=== PATIENT | male | born 1995 | race Caucasian/White ===

== ENCOUNTER 2018-12-08 09:30 | Emergency (ER) | payer MEDICAID, OTHER ==
[~2018-12-08] VITALS: Ht 170.2 cm; Wt 78.0 kg
[~2018-12-08 09:30] MED LIST: [UNRECOGNIZED DRUG - REMARK]
[2018-12-08 09:33] VITALS: BP 128/65; PULSE 92; RESP 16; Ht 170.2 cm; Wt 78.0 kg
--- NOTE | 2018-12-08 09:46 | ERD ---
ER Documentation Chief Complaint Chief Complaint pt is bib self with c/o right ear pain x 2 wks getting worse HPI This is a 23-year-old male who presents with pain in his right ear for the past 2 weeks. He was also experiencing decreased hearing in the right ear. No bleeding or drainage from the ear. No fever. Tried [id number] wax removal kits without any relief. ROS All systems reviewed and are negative except as per history of present illness. Medications Home Meds Reported Medications [Unkn Antibiotics] No Conflict Check 10/30/09 [None] No Conflict Check 10/23/09 Allergies Allergies: Coded Allergies: No Known Allergies (Verified Allergy, Mild, 10/30/09) PMhx/Soc History of Surgery: No Anesthesia Reaction: No Hx Neurological Disorder: No Hx Respiratory Disorders: No Hx Cardiac Disorders: No Hx Psychiatric Problems: No Hx Miscellaneous Medical Probl: No Hx Alcohol Use: No Hx Substance Use: No Hx Tobacco Use: No FmHx Family History: No diabetes Physical Exam Vitals Vital Signs Date Temp Pulse Resp B/P (MAP) Pulse Ox O2 O2 Flow FiO2 Time Delivery Rate 12/08/18 98.0 92 16 128/65 98 09:33 (86) Physical Exam Const: No acute distress Head: Atraumatic Eyes: Normal Conjunctiva ENT: Cerumen impaction bilaterally worse on the right side Neck: Full range of motion. No meningismus. Resp: Clear to auscultation bilaterally Cardio: Regular rate and rhythm, no murmurs Results 24 hrs Current Medications Medications Dose Sig/Luigi Start Time Status Last (Trade) Ordered Route PRN Stop Time Admin Dose Reason Admin Docusate 10 mg BID PO 12/08/18 Sodium 11:00 (Colace Liquid (Ped)) Procedures/MDM Patient has cerumen impaction. Ear lavage of the right ear performed. Patient discharged with Cortisporin eardrops. Patient counseled regarding my diagnostic impression and care plan. Prior to discharge all questions answered. Pt agrees with treatment plan and understands strict return precautions. Pt is instructed to follow up with primary care provider within 24-48 hours. Precautionary instructions provided including instructions to return to the ER if not improving or for any worsening or changing symptoms or concerns. Departure Diagnosis: Primary Impression: Otalgia Additional Impression: Cerumen impaction Condition: Stable MATT VANCE PA-C Dec 08, 2018 09:46
[2018-12-08] MEDS ORDERED: NPH10OT RIGHT EAR (10:13)
[2018-12-08] MEDS ORDERED: DOCUSATE 10 MG/ML PO SYG PO SCH (11:00)
== END 2018-12-08 11:20 | disposition home or self-care (01) ==
LOC: FTE 09:30
DX: H61.21 Impacted cerumen, right ear (principal)
CPT/HCPCS: 69209; Z7502